=== PATIENT | female | born 1930 | race Caucasian/White ===

== ENCOUNTER 2021-04-20 00:05 | Inpatient (IN) | payer MEDICARE ==
[2021-04-20 01:28] VITALS: BMI 19.5
[2021-04-20] MEDS ORDERED: Ibuprofen 200 MG TAB PO PRN ×2 (01:49→08:45)
[2021-04-20] MEDS ORDERED: hydrALAZINE 20 MG/ML VIAL SLOW IVP PRN (01:49)
[2021-04-20] MEDS ORDERED: Cyclobenzaprine 10 MG TAB PO PRN (01:49)
[2021-04-20] MEDS ORDERED: Promethazine HCl 25 MG/ML VIAL IM PRN (01:54)
[2021-04-20] MEDS ORDERED: Ondansetron PF 4 MG/2 ML Vial IVP PRN (01:54)
[2021-04-20] MEDS: Sodium Chloride 0.9% 1,000 ML IV SCH ×3 (02:27→20:24)
[2021-04-20] MEDS: Morphine 2 MG/ML VIAL SLOW IVP PRN (02:31)
[2021-04-20] MEDS: Acetaminophen 325 MG TAB PO SCH ×3 (05:48→18:48)
[2021-04-20] MEDS: traMADol HCl 50 MG TAB PO PRN (05:48)
[2021-04-20 06:09] LABS: #Lymphocytes 0.9 thou/uL (1.20-3.40); #Monocytes 0.5 thou/uL (0.11-0.59); %Basophils 0.2 % (0.0-1.0); %Eosinophils 0.5 % (0.0-10.0); %Lymphocytes 8.8 % (21.0-51.0); %Monocytes 4.6 % (0.0-10.0); %Neutrophils 85.9 % (42.0-75.0); Hemoglobin 12.3 g/dL (12.0-16.0); Mean Corpuscular HGB CONC 32.6 g/dL (32.0-36.0); Mean Corpuscular Volume 92.1 fL (78.0-98.0); Mean Platelet Volume 7.4 fL (7.4-10.4); Platelet Count 182 thou/uL (130-400); RBC Distribution Width 13.3 % (11.5-14.5); Red Blood Cell (RBC) Count 4.11 mill/uL (4.20-5.40); White Blood Cell (WBC) Count 10.5 thou/uL (4.8-10.8)
[2021-04-20 06:24] LABS: INR-International Normal Ratio 1.2; Prothrombin Time 14.7 sec (12.0-14.7)
[2021-04-20 06:25] LABS: PTT 28.8 sec (22.9-36.1)
[2021-04-20 06:31] LABS: Anion Gap 10 mmol/L (10-20); BUN (Urea Nitrogen) 13 mg/dL (9.8-20.1); Calc. Creatinine Clearance 51 mL/min (70-130); Calcium 8.6 mg/dL (7.8-10.44); Carbon Dioxide 22 mmol/L (23-31); Chloride 99 mmol/L (98-107); Glucose 99 mg/dL (83-110); Magnesium 1.8 mg/dL (1.6-2.6); Potassium 4.2 mmol/L (3.5-5.1); Sodium 127 mmol/L (136-145)
[2021-04-20] MEDS ORDERED: Magnesium Sulfate 3 GM in Sodium Chloride 0.9% 100 ML IV SCH (07:30)
[2021-04-20] MEDS ORDERED: CEFAZOLIN 2 GM in Premix Bag 1 BAG IVPB SCH (07:30)
[2021-04-20] MEDS: Famotidine/PF 20 mg/2ml Vial SLOW IVP SCH ×2 (08:58→20:15)
[2021-04-20] MEDS: Gabapentin 100 MG CAP PO SCH ×2 (08:59→17:17)
[2021-04-20] MEDS: Polyethylene Glycol 3350 17 GM Packet PO SCH (08:59)
[2021-04-20] MEDS: Multivitamin W/ Minerals 1 TAB PO SCH (08:59)
[2021-04-20] MEDS: Senokot S 8.6-50 MG TAB PO SCH ×2 (09:00→20:13)
[2021-04-20] MEDS ORDERED: Gabapentin 300 MG CAP PO SCH ×2 (09:00)
[2021-04-20] MEDS: Gabapentin 300 MG CAP PO SCH ×2 (17:19→20:13)
[2021-04-20] MEDS: Montelukast Sodium 10 mg Tablet PO SCH (20:13)
[2021-04-20] MEDS: Timolol 0.25% Ophth Soln 5 ml Bottle EA EYE SCH (20:14)
[2021-04-20] MEDS: Latanoprost 0.005% Ophth Soln 2.5 ml Bottle L EYE SCH (20:14)
[2021-04-20] MEDS: traZODone HCl 50 MG TAB PO SCH (20:14)
[2021-04-21] MEDS: Acetaminophen 325 MG TAB PO SCH ×4 (00:47→16:44)
[2021-04-21] MEDS: Levothyroxine Sodium 100 MCG TAB PO SCH (05:15)
[2021-04-21] MEDS ORDERED: Fentanyl 100 MCG/2 ML VIAL ONE ×2 (08:03→10:48)
[2021-04-21] MEDS ORDERED: Ketamine 50 MG/ML (10ML VIAL) ONE (08:03)
[2021-04-21] MEDS ORDERED: ePHEDrine 50 MG/ML VIAL ONE (08:25)
[2021-04-21] MEDS ORDERED: Dexamethasone 20 MG/5 ML VIAL ONE (08:25)
[2021-04-21] MEDS ORDERED: Rocuronium Bromide 10 MG/ML (10ML VIAL) ONE (08:25)
[2021-04-21] MEDS ORDERED: PROPOFOL 200 MG/20 ML VIAL ONE (08:25)
[2021-04-21] MEDS ORDERED: Lidocaine 1% PF 5 ML VIAL ONE (08:25)
[2021-04-21] MEDS ORDERED: Glycopyrrolate 0.2 MG/ML 5 ML SYRINGE ONE (08:25)
[2021-04-21] MEDS ORDERED: Ondansetron PF 4 MG/2 ML Vial ONE (08:25)
[2021-04-21] MEDS ORDERED: Aspirin 81 mg Enteric Coated Tablet PO SCH ×2 (09:00→21:00)
[2021-04-21] MEDS ORDERED: Tranexamic Acid 1,000 MG/10 ML VIAL ONE (09:13)
[2021-04-21] MEDS ORDERED: Albumin 5% 500 ML ONE (09:34)
[2021-04-21] MEDS ORDERED: Promethazine HCl 25 MG/ML VIAL IM PRN (10:50)
[2021-04-21] MEDS ORDERED: Promethazine HCl 25 MG/ML VIAL IVPB PRN (10:50)
[2021-04-21] MEDS ORDERED: CEFAZOLIN 1 GM in Sodium Chloride 0.9% 100 ML IVPB SCH (14:00)
[2021-04-21] MEDS: Gabapentin 300 MG CAP PO SCH ×3 (14:38→21:00)
[2021-04-21] MEDS: Morphine 2 MG/ML VIAL SLOW IVP PRN ×2 (14:49→18:51)
[2021-04-21] MEDS: Timolol 0.25% Ophth Soln 5 ml Bottle EA EYE SCH ×2 (14:49→23:11)
[2021-04-21] MEDS: Famotidine/PF 20 mg/2ml Vial SLOW IVP SCH ×2 (15:06→23:05)
[2021-04-21] MEDS: Multivitamin W/ Minerals 1 TAB PO SCH (15:40)
[2021-04-21] MEDS: Polyethylene Glycol 3350 17 GM Packet PO SCH ×2 (15:41)
[2021-04-21] MEDS: Senokot S 8.6-50 MG TAB PO SCH ×2 (15:41→21:00)
[2021-04-21] MEDS: Sodium Chloride 0.9% 1,000 ML IV SCH (18:54)
[2021-04-21] MEDS ORDERED: Melatonin 3 MG TAB PO PRN (19:44)
[2021-04-21] MEDS: traZODone HCl 50 MG TAB PO SCH (21:00)
[2021-04-21] MEDS: Montelukast Sodium 10 mg Tablet PO SCH (21:00)
[2021-04-21 21:09] LABS: Troponin I 0.013 ng/mL (< 0.028)
[2021-04-21 21:35] LABS: Anion Gap 9 mmol/L (10-20); BUN (Urea Nitrogen) 12 mg/dL (9.8-20.1); Calc. Creatinine Clearance 58 mL/min (70-130); Calcium 8.4 mg/dL (7.8-10.44); Carbon Dioxide 25 mmol/L (23-31); Chloride 102 mmol/L (98-107); Glucose 88 mg/dL (83-110); Magnesium 1.9 mg/dL (1.6-2.6); Phosphorus 2.8 mg/dL (2.3-4.7); Potassium 4.1 mmol/L (3.5-5.1); Sodium 132 mmol/L (136-145)
[2021-04-21] MEDS ORDERED: Potassium Phosphate 30 MMOL in Sodium Chloride 0.9% 500 ML IVPB SCH (23:00)
[2021-04-21] MEDS ORDERED: Magnesium Sulfate 3 GM in Sodium Chloride 0.9% 100 ML IV SCH (23:00)
[2021-04-21] MEDS: Latanoprost 0.005% Ophth Soln 2.5 ml Bottle L EYE SCH (23:05)
[2021-04-22] MEDS: ceFAZolin 1 GM/D5W 1 GM in Premix Bag 1 BAG IVPB SCH ×4 (00:01→22:57)
[2021-04-22] MEDS: Acetaminophen 325 MG TAB PO SCH ×5 (00:33→23:49)
[2021-04-22 04:51] LABS: #Lymphocytes 0.7 thou/uL (1.20-3.40); #Monocytes 0.5 thou/uL (0.11-0.59); #Neutrophils 6.6 thou/uL (1.40-6.50); %Basophils 0.2 % (0.0-1.0); %Eosinophils 0.3 % (0.0-10.0); %Lymphocytes 8.6 % (21.0-51.0); %Monocytes 6.2 % (0.0-10.0); %Neutrophils 84.7 % (42.0-75.0); Hemoglobin 10.6 g/dL (12.0-16.0); Mean Corpuscular HGB CONC 32.8 g/dL (32.0-36.0); Mean Corpuscular Hemoglobin 30.4 pg (27.0-31.0); Mean Corpuscular Volume 92.7 fL (78.0-98.0); Mean Platelet Volume 7.7 fL (7.4-10.4); Platelet Count 156 thou/uL (130-400); RBC Distribution Width 13.2 % (11.5-14.5); Red Blood Cell (RBC) Count 3.47 mill/uL (4.20-5.40); White Blood Cell (WBC) Count 7.8 thou/uL (4.8-10.8)
[2021-04-22 05:27] LABS: Anion Gap 15 mmol/L (10-20); BUN (Urea Nitrogen) 12 mg/dL (9.8-20.1); Calc. Creatinine Clearance 56 mL/min (70-130); Calcium 8.2 mg/dL (7.8-10.44); Carbon Dioxide 19 mmol/L (23-31); Chloride 103 mmol/L (98-107); Glucose 84 mg/dL (83-110); Magnesium 2.5 mg/dL (1.6-2.6); Phosphorus 4.2 mg/dL (2.3-4.7); Potassium 4.3 mmol/L (3.5-5.1); Sodium 133 mmol/L (136-145)
[2021-04-22] MEDS: Levothyroxine Sodium 100 MCG TAB PO SCH (06:49)
[2021-04-22] MEDS: Sodium Chloride 0.9% 1,000 ML IV SCH (08:42)
[2021-04-22] MEDS: Morphine 2 MG/ML VIAL SLOW IVP PRN (09:12)
[2021-04-22] MEDS: Aspirin 81 mg Enteric Coated Tablet PO SCH ×2 (09:19→21:44)
[2021-04-22] MEDS: Senokot S 8.6-50 MG TAB PO SCH ×2 (09:19→21:44)
[2021-04-22] MEDS: Multivitamin W/ Minerals 1 TAB PO SCH (09:20)
[2021-04-22] MEDS: Polyethylene Glycol 3350 17 GM Packet PO SCH (09:20)
[2021-04-22] MEDS: Gabapentin 300 MG CAP PO SCH ×3 (09:21→21:44)
[2021-04-22] MEDS: Famotidine/PF 20 mg/2ml Vial SLOW IVP SCH (09:22)
[2021-04-22] MEDS: Timolol 0.25% Ophth Soln 5 ml Bottle EA EYE SCH ×2 (09:23→21:47)
[2021-04-22 12:25] LABS: Bilirubin Negative (Negative); Blood, Urine Trace (Negative); Clarity Clear (Clear); Glucose, Urine (Dipstick) Normal (Negative); Ketone, Urine 100 mg/dL (Negative); Leukocyte 500 Leu/uL (Negative); Nitrite 2+ (Negative); Protein, Urine (Dipstick) Negative (Neg-Trace); RBC/HPF 0-3 HPF (0-3); Specific Gravity, Urine 1.017 (1.002-1.036); Squamous Epithelial 0-3 HPF (0-3); Urobilinogen Normal mg/dL (Less than 2); WBC/HPF 21-50 HPF (0-3)
[2021-04-22 12:59] LABS: Bacteria/HPF 1+ HPF (None Seen)
[2021-04-22 13:00] LABS: Urine Culture Reflex Yes Yes
[2021-04-22] MEDS: traZODone HCl 50 MG TAB PO SCH (21:44)
[2021-04-22] MEDS: Montelukast Sodium 10 mg Tablet PO SCH (21:44)
[2021-04-22] MEDS: Nitrofurantoin Monohyd/M-Cryst 100 MG CAP PO SCH (21:45)
[2021-04-22] MEDS: Latanoprost 0.005% Ophth Soln 2.5 ml Bottle L EYE SCH (21:47)
[2021-04-23] MEDS: ceFAZolin 1 GM/D5W 1 GM in Premix Bag 1 BAG IVPB SCH ×4 (05:39→21:09)
[2021-04-23] MEDS: Acetaminophen 325 MG TAB PO SCH ×3 (05:42→18:36)
[2021-04-23] MEDS: Levothyroxine Sodium 100 MCG TAB PO SCH (05:43)
[2021-04-23] MEDS ORDERED: CEFAZOLIN 1 GM in Sodium Chloride 0.9% 100 ML IVPB SCH (06:00)
[2021-04-23] MEDS ORDERED: Famotidine/PF 20 mg/2ml Vial SLOW IVP SCH (09:00)
[2021-04-23] MEDS: Aspirin 81 mg Enteric Coated Tablet PO SCH ×2 (09:27→21:08)
[2021-04-23] MEDS: Gabapentin 300 MG CAP PO SCH ×3 (09:27→21:08)
[2021-04-23] MEDS: Nitrofurantoin Monohyd/M-Cryst 100 MG CAP PO SCH (09:28)
[2021-04-23] MEDS: Senokot S 8.6-50 MG TAB PO SCH ×2 (09:28→21:08)
[2021-04-23] MEDS: Multivitamin W/ Minerals 1 TAB PO SCH (09:28)
[2021-04-23] MEDS: Polyethylene Glycol 3350 17 GM Packet PO SCH (09:29)
[2021-04-23] MEDS: Timolol 0.25% Ophth Soln 5 ml Bottle EA EYE SCH ×2 (09:32→21:09)
[2021-04-23] MEDS: traMADol HCl 50 MG TAB PO PRN (14:12)
[2021-04-23 18:19] LABS: #Basophils 0.1 thou/uL (0.0-0.2); #Eosinphils 0.2 thou/uL (0.0-0.7); #Lymphocytes 1.4 thou/uL (1.20-3.40); #Monocytes 0.6 thou/uL (0.11-0.59); #Neutrophils 4.2 thou/uL (1.40-6.50); %Basophils 0.8 % (0.0-1.0); %Eosinophils 3.7 % (0.0-10.0); %Lymphocytes 20.9 % (21.0-51.0); %Monocytes 9.5 % (0.0-10.0); Hemoglobin 10.8 g/dL (12.0-16.0); Mean Corpuscular HGB CONC 33.5 g/dL (32.0-36.0); Mean Corpuscular Hemoglobin 30.8 pg (27.0-31.0); Mean Corpuscular Volume 91.9 fL (78.0-98.0); Mean Platelet Volume 7.9 fL (7.4-10.4); Platelet Count 198 thou/uL (130-400); RBC Distribution Width 13.2 % (11.5-14.5); Red Blood Cell (RBC) Count 3.49 mill/uL (4.20-5.40); White Blood Cell (WBC) Count 6.5 thou/uL (4.8-10.8)
[2021-04-23] MEDS ORDERED: Furosemide 20 MG/2 ML VIAL SLOW IVP SCH (18:30)
[2021-04-23 18:46] LABS: Anion Gap 11 mmol/L (10-20); BUN (Urea Nitrogen) 11 mg/dL (9.8-20.1); Calc. Creatinine Clearance 50 mL/min (70-130); Calcium 8.4 mg/dL (7.8-10.44); Carbon Dioxide 23 mmol/L (23-31); Chloride 101 mmol/L (98-107); Glucose 135 mg/dL (83-110); Magnesium 1.8 mg/dL (1.6-2.6); Sodium 131 mmol/L (136-145)
[2021-04-23] MEDS ORDERED: Magnesium Sulfate 2 GM in Sodium Chloride 0.9% 100 ML IVPB SCH (19:45)
[2021-04-23] MEDS: Montelukast Sodium 10 mg Tablet PO SCH (21:08)
[2021-04-23] MEDS: traZODone HCl 50 MG TAB PO SCH (21:08)
[2021-04-23] MEDS: Latanoprost 0.005% Ophth Soln 2.5 ml Bottle L EYE SCH (21:09)
[2021-04-23] MEDS: traMADol HCl 50 MG TAB PO SCH (21:11)
[2021-04-24] MEDS: Acetaminophen 325 MG TAB PO SCH ×4 (00:34→19:15)
[2021-04-24] MEDS: traMADol HCl 50 MG TAB PO SCH ×4 (02:07→19:33)
[2021-04-24 05:47] LABS: Anion Gap 11 mmol/L (10-20); BUN (Urea Nitrogen) 13 mg/dL (9.8-20.1); Calc. Creatinine Clearance 59 mL/min (70-130); Calcium 8.1 mg/dL (7.8-10.44); Carbon Dioxide 25 mmol/L (23-31); Chloride 101 mmol/L (98-107); Glucose 102 mg/dL (83-110); Magnesium 2.6 mg/dL (1.6-2.6); Potassium 3.8 mmol/L (3.5-5.1); Sodium 133 mmol/L (136-145)
[2021-04-24] MEDS: ceFAZolin 1 GM/D5W 1 GM in Premix Bag 1 BAG IVPB SCH ×2 (06:09→15:25)
[2021-04-24] MEDS: Levothyroxine Sodium 100 MCG TAB PO SCH (06:10)
[2021-04-24] MEDS: Gabapentin 300 MG CAP PO SCH ×3 (09:22→19:15)
[2021-04-24] MEDS: Multivitamin W/ Minerals 1 TAB PO SCH (09:27)
[2021-04-24] MEDS: Aspirin 81 mg Enteric Coated Tablet PO SCH ×2 (09:27→19:15)
[2021-04-24] MEDS: Polyethylene Glycol 3350 17 GM Packet PO SCH (09:28)
[2021-04-24] MEDS: Timolol 0.25% Ophth Soln 5 ml Bottle EA EYE SCH ×2 (09:28→19:19)
[2021-04-24] MEDS: Senokot S 8.6-50 MG TAB PO SCH ×2 (09:28→19:15)
[2021-04-24] MEDS: Montelukast Sodium 10 mg Tablet PO SCH (19:15)
[2021-04-24] MEDS: traZODone HCl 50 MG TAB PO SCH (19:16)
[2021-04-24 19:18] VITALS: BP 140/69; TEMP 97.8
[2021-04-24] MEDS: Latanoprost 0.005% Ophth Soln 2.5 ml Bottle L EYE SCH (19:18)
== END 2021-04-24 19:30 | DRG 522 ==
LOC: SURG A 00:42 → 2NO 04-21 14:02
PROVIDERS: ADMIT Surgery; ATTEND Surgery
PROC: 0SRR0J9 Replacement of Right Hip Joint, Femoral Surface with Synthetic Substitute, Cemented, Open Approach (ICD-10-PCS; principal; 2021-04-21)
DX: S72.011A Unspecified intracapsular fracture of right femur, initial encounter for closed fracture (principal); E87.1 Hypo-osmolality and hyponatremia; Z20.822 Contact with and (suspected) exposure to COVID-19; W17.89XA Other fall from one level to another, initial encounter; M19.90 Unspecified osteoarthritis, unspecified site; J45.909 Unspecified asthma, uncomplicated; E03.9 Hypothyroidism, unspecified; H40.9 Unspecified glaucoma; G62.9 Polyneuropathy, unspecified; Z96.642 Presence of left artificial hip joint; Z90.710 Acquired absence of both cervix and uterus; Z79.890 Hormone replacement therapy; Z79.82 Long term (current) use of aspirin; Z79.899 Other long term (current) drug therapy
CPT/HCPCS: 36415; 71045; 72170; 80048; 80053; 81001; 83735; 83880; 84100; 84484; 85025; 85610; 85730; 86850; 86900; 86901; 87086; 93005; 93010; 94640; 96374; 96375; 96376; J0690; J1100; J1885; J1940; J2270; J2405; J2704; J3010; J3475; J3490; J7030; J7050; J7620; P9045; S0028; U0002